=== PATIENT | female | born 1960 | race African-American/Black ===

== ENCOUNTER 2017-04-16 10:40 | Emergency (ER) | payer OTHER, MEDICAID ==
[~2017-04-16] VITALS: Ht 165.1 cm; Wt 82.1 kg
[2017-04-16 11:21] VITALS: BP 149/93
[2017-04-16] MEDS ORDERED: KETOROLAC TROMETH 60MG/2ML VIAL IM ONE (11:30)
== END 2017-04-16 12:32 | disposition home or self-care (01) ==
LOC: ER 10:40
DX: M50.30 Other cervical disc degeneration, unspecified cervical region (principal); I10 Essential (primary) hypertension; G89.29 Other chronic pain; M54.5 Low back pain
CPT/HCPCS: 70450; 93005; 96372; 99284; J1885